=== PATIENT | male | born 1950 | race Caucasian/White ===

== ENCOUNTER → 2020-10-05 | Outpatient (REF) | payer MEDICARE ==
[2020-10-05 13:52] LABS: BASO # 0.1 10^3/uL (0.0-0.2); BASO % 0.5 % (0.0-1.0); EOS % 0.3 % (0.0-3.0); HEMATOCRIT 45.3 % (42.0-52.0); LYMPH # 1.4 10^3/uL (1.5-5.0); LYMPH % 14.4 % (24.0-44.0); MEAN CORPUSCULAR HEMOGLOBIN 30.4 pg (27.0-33.0); MEAN CORPUSCULAR HGB CONC 33.1 g/dl (32.0-36.5); MEAN CORPUSCULAR VOLUME 91.9 fl (80.0-96.0); MONO # 0.3 10^3/uL (0.0-0.8); MONO % 3.5 % (0.0-5.0); NEUTROPHILS # 7.5 10^3/uL (1.5-8.5); NEUTROPHILS % 80.8 % (36.0-66.0); PLATELET COUNT, AUTOMATED 272 10^3/uL (150-450); RED BLOOD COUNT 4.93 10^6/uL (4.30-6.10); WHITE BLOOD COUNT 9.4 10^3/uL (4.0-10.0)
[2020-10-05 14:00] LABS: ALBUMIN 3.8 GM/DL (3.2-5.2); ALT/SGPT 16 U/L (12-78); BILIRUBIN,DIRECT 0.1 MG/DL (0.0-0.2); BILIRUBIN,TOTAL 0.3 MG/DL (0.2-1.0); BLOOD UREA NITROGEN 13 MG/DL (7-18); CALCIUM LEVEL 9.4 MG/DL (8.8-10.2); CARBON DIOXIDE LEVEL 27 MEQ/L (21-32); CHLORIDE LEVEL 104 MEQ/L (98-107); CREATININE FOR GFR 0.84 MG/DL (0.70-1.30); GLOMERULAR FILTRATION RATE > 60.0 (>42); GLUCOSE, FASTING 127 MG/DL (70-100); POTASSIUM SERUM 4.5 MEQ/L (3.5-5.1); SODIUM LEVEL 137 MEQ/L (136-145); TOTAL PROTEIN 7.5 GM/DL (6.4-8.2); URIC ACID 3.9 MG/DL (3.5-7.2)
[2020-10-05 14:08] LABS: HEPATITIS B SURFACE ANTIBODY NEGATIVE (POSITIVE)
[2020-10-05 14:19] LABS: HEPATITIS B SURFACE ANTIGEN NEGATIVE (NEGATIVE)
[2020-10-05 14:29] LABS: ERYTHROCYTE SEDIMENTATION RATE 9 mm/hr (0-20)
[2020-10-05 14:47] LABS: HEPATITIS C VIRUS ABY INDEX 0.1 INDEX (<0.8)
[2020-10-07 21:06] LABS: CYCLIC CITRULLINATED PEPTIDE > 250 units (0-19); HEPATITIS B CORE ANTIBODY IGG Negative (Negative); Lyme Disease IgG/IgM Antibodie <0.91 ISR (0.00-0.90); Lyme Disease IgM Ab Quantitati <0.80 index (0.00-0.79)
== END ==
LOC: M SFHCRHEU 09:59
PROVIDERS: ATTEND Internal Medicine
DX: M06.4 Inflammatory polyarthropathy (principal); R76.8 Other specified abnormal immunological findings in serum